=== PATIENT | female | born 1975 | race Caucasian/White ===

== ENCOUNTER 2022-06-08 20:45 | Emergency (ER) | payer OTHER, SELFPAY ==
--- NOTE | 2022-06-08 20:58 | CRLHL7_ITS ---
For Patients: As a result of the Century Cures Act, medical imaging exams and procedure reports are released immediately into your electronic medical record. You may view this report before your referring provider. If you have questions, please contact your health care provider. INDICATION: Ankle injury from fall TECHNIQUE: Ankle radiograph 3 views right COMPARISON: None FINDINGS: Bone: No acute fractures or aggressive bone lesions are identified. Joint: The ankle mortise joint and the visualized hindfoot joints are unremarkable in appearance. No significant ankle effusion is seen. Soft tissue: Severe lateral swelling is noted. No radiopaque foreign bodies are seen. IMPRESSION: 1. No acute osseous injuries or abnormalities are noted. Dictated by Ketan Duong MD @ 06/08/2022 9:31:55 PM Prelim Report By Dr. Ketan Duong @ 06/08/2022 9:31:57 PM ADDENDUM I have reviewed the exam with Dr. Hooper at 10:03 PM. There may be subtle faint densities along the lateral soft tissues near the cortex of the lateral hindfoot. Tiny avulsion fracture fragments should be considered if there is focal tenderness in this region. Dictated by: MD @ 06/08/2022 22:04:58 (Electronically Signed)
[2022-06-08 21:05] VITALS: BP 121/80; PULSE 74; RESP 16; TEMP 37; O2SAT 99; BMI 37.8
--- NOTE | 2022-06-08 21:32 | ED_ITS ---
HPI - Extremity Injury (Lower) General Chief Complaint: Extremity Pain/Injury, Lower Stated Complaint: R ankle injury Time Seen by Provider: 06/08/22 21:24 History of Present Illness HPI Narrative: 46-year-old woman presenting to the emergency department with her daughter with concern of right ankle injury. Was packing to move I believe to [place] and admits had been hurrying around cleaning the garage when tripped over a step and rolled her right ankle. Describes an inversion injury. Was able to bear little weight initially. Is having significant pain. No other injury was sustained. No loss of consciousness. Related Data Previous Rx's Medication Instructions Recorded escitalopram oxalate 10 mg tablet See Rx Instructions .Route 02/15/22 .COMPLEX #90 ea escitalopram oxalate 20 mg tablet See Rx Instructions .Route 02/15/22 .COMPLEX #90 ea levothyroxine 75 mcg tablet 75 mcg PO QDAY #30 tabs 06/02/22 Allergies Allergy/AdvReac Type Severity Reaction Status Date / Time No Known Drug Allergies Allergy Verified 06/08/22 21:07 Review of Systems Status of ROS: Reports: 6 or more systems reviewed and unremarkable except as noted in History and below [facility] Social History Smoking Status: Never smoker Do you use any of these nicotine containing products: None Second hand tobacco smoke exposure: No How often do you have a drink containing alcohol: monthly or less How many standard drinks containing alcohol do you have on a typical day: 1 or 2 AUDIT-C Alcohol total score: 1 Non-prescribed substance use: denies use service: No Exam Narrative: Exam Narrative: A pleasant. Right leg is elevated with shoe and sock off. Breathing easily. Conversing easily. Moving all extremities without difficulty favoring the right lower leg though. Very swollen racquetball sized generally over the lateral malleolus. Tender at the tip of each malleoli. And inferior to both malleoli. There is no navicular tenderness. No base of 5th metatarsal tenderness. Mild discomfort to varus or valgus stressors of the calcaneus. AP drawer is normal. Const: Vital Signs, click to edit/add: Vital Signs - 24 hr 06/08/22 21:05 Temperature 98.6 F Pulse Rate [Pulse Oximeter] 74 Respiratory Rate 16 Blood Pressure [Ri ght Upper Arm] 121/80 Pulse Oximetry 99 Oxygen Delivery Me thod Room Air Documenting provider has reviewed patient's vital signs: yes Course Vital Signs Vital signs: Initial Vital Signs Temperature 98.6 F 06/08/22 21:05 Temperature Source Temporal Artery Scan 06/08/22 21:05 Pulse Rate 74 06/08/22 21:05 Pulse Rhythm Regular 06/08/22 21:05 Pulse Strength 3+ Normal 06/08/22 21:05 Respiratory Rate 16 06/08/22 21:05 Blood Pressure 121/80 06/08/22 21:05 Blood Pressure Mean 93 06/08/22 21:05 Blood Pressure Position Sitting 06/08/22 21:05 Pulse Oximetry 99 06/08/22 21:05 Oxygen Delivery Method Room Air 06/08/22 21:05 Vital Signs Temperature 98.6 F 06/08/22 21:05 Pulse Rate 74 06/08/22 21:05 Respiratory Rate 16 06/08/22 21:05 Blood Pressure 121/80 06/08/22 21:05 Pulse Oximetry 99 06/08/22 21:05 Oxygen Delivery Method Room Air 06/08/22 21:05 Temperature 98.6 F 06/08/22 21:05 Pulse Rate 74 06/08/22 21:05 Respiratory Rate 16 06/08/22 21:05 Blood Pressure 121/80 06/08/22 21:05 Pulse Oximetry 99 06/08/22 21:05 Oxygen Delivery Method Room Air 06/08/22 21:05 MDM - Extremity Injury (Lower) MDM Narrative Medical decision making narrative: I suspect primarily ankle sprain though degree of discomfort as reported is of concern for fracture. Imaging of the ready been ordered by the time I am seeing Ms. Fernandes. Reviewing three-view of the ankle I see soft tissue swelling. Maintained mortise. There is some irregularity along the lateral talus into the cortex as well as some linear artifacts/opacity lateral to the calcaneus only noticeable on AP view. I suspect regardless this would not change treatment plan beyond similar treatment for severe sprain. Radiology over-read notes normal imaging. I did call to discuss further. Appreciate my concerns and note would be rather unusual fracture. Possible avulsion for the area lateral to the calcaneus. These areas in question certainly are areas of significant tenderness though not discretely so. Had already planned to place an Aircast. She tolerates this well and feels improved. She notes she has crutches in the car. Is dispensed a couple of Alexys wraps as well See patient discharge plan Discharge Plan Discharge Clinical Impression: Ankle sprain Patient Disposition: Home w/ Parent or Adult Condition: Stable Instructions: Ankle Sprain (ED) Additional Instructions: Rest by avoiding significant ambulation in the next 3 days by using crutches. After that can use this Aircast to encourage early mobilization, security. Elevate at rest. Compress with Alexys wrap. Really important to ice a few times daily over the next few days, maybe even a week. See handout on rehabilitation of ankle sprain. If you are not improving at all in a week, follow up for re-evaluation. Prescriptions: No Action escitalopram oxalate 20 mg tablet See Rx Instructions .ROUTE .COMPLEX Qty: 90 3RF Dose Instruction: TAKE ONE TABLET BY MOUTH DAILY ALONG WITH 10 MG TABLET Rx Instructions: TAKE ONE TABLET BY MOUTH DAILY ALONG WITH 10 MG TABLET escitalopram oxalate 10 mg tablet See Rx Instructions .ROUTE .COMPLEX Qty: 90 3RF Dose Instruction: TAKE ONE TABLET BY MOUTH DAILY ALONG WITH 20 MG TABLET Rx Instructions: TAKE ONE TABLET BY MOUTH DAILY ALONG WITH 20 MG TABLET levothyroxine 75 mcg tablet 75 mcg PO QDAY Qty: 30 0RF Follow Up/Referrals: Leyda Celestin PA-C [Primary Care Provider] - Stand Alone Forms: Site Intelligence Info Instructions
== END 2022-06-08 22:23 | disposition home or self-care (01) ==
PROVIDERS: Emergency Provider Family Medicine; PCP Physician Assistant Medical
DX: S93.401A Sprain of unspecified ligament of right ankle, initial encounter (principal); X50.1XXA Overexertion from prolonged static or awkward postures, initial encounter
CPT/HCPCS: 73610; 99283; 99284

== ENCOUNTER 2022-08-02 08:39 | Outpatient (CLI) | payer OTHER, SELFPAY | END 2022-08-02 08:40 | disposition home or self-care (01) | PROVIDERS: PCP Physician Assistant Medical; Visit Provider Physician Assistant Medical | DX: Z00.00 Encounter for general adult medical examination without abnormal findings (principal); E03.9 Hypothyroidism, unspecified; F41.9 Anxiety disorder, unspecified; R03.0 Elevated blood-pressure reading, without diagnosis of hypertension; Z13.6 Encounter for screening for cardiovascular disorders; Z13.0 Encounter for screening for diseases of the blood and blood-forming organs and certain disorders involving the immune mechanism | CPT/HCPCS: 80053; 80076; 84443 ==

== ENCOUNTER 2023-09-28 10:37 | Outpatient (CLI) | payer OTHER, SELFPAY ==
[2023-09-28 15:45] LABS: Chlamydia DNA Amplified* NOT DETECTED (No Detected); GC DNA Amplified* NOT DETECTED (No Detected)
== END 2023-09-28 10:38 | disposition home or self-care (01) ==
PROVIDERS: PCP Physician Assistant Medical; Visit Provider Physician Assistant Medical
DX: E03.9 Hypothyroidism, unspecified (principal); R74.8 Abnormal levels of other serum enzymes; Z13.228 Encounter for screening for other metabolic disorders; Z11.3 Encounter for screening for infections with a predominantly sexual mode of transmission; Z11.59 Encounter for screening for other viral diseases
CPT/HCPCS: 80053; 80061; 84439; 84443; 86703; 86803; 87491; 87591

== ENCOUNTER 2023-12-21 15:48 | Outpatient (CLI) | payer OTHER, SELFPAY | END 2023-12-21 15:49 | disposition home or self-care (01) | LOC: NFLDREF 12-22 08:08 | PROVIDERS: PCP Physician Assistant Medical; Referring Provider Physician Assistant Medical; Visit Provider Physician Assistant Medical | DX: E03.9 Hypothyroidism, unspecified (principal) | CPT/HCPCS: 84443 ==

== ENCOUNTER 2024-10-01 11:24 | Outpatient (CLI) | payer OTHER, SELFPAY | END 2024-10-01 11:25 | disposition home or self-care (01) | PROVIDERS: PCP Physician Assistant Medical; Visit Provider Physician Assistant Medical | DX: Z00.00 Encounter for general adult medical examination without abnormal findings (principal); R74.8 Abnormal levels of other serum enzymes; E03.9 Hypothyroidism, unspecified; N95.9 Unspecified menopausal and perimenopausal disorder; Z79.899 Other long term (current) drug therapy | CPT/HCPCS: 80053; 80061; 82306; 84439; 84443 ==